=== PATIENT | female | born 1975 | race Two or more races ===

== ENCOUNTER 2017-05-18 16:23 | Emergency (ER) | payer OTHER ==
[~2017-05-18] VITALS: Ht 165.1 cm; Wt 71.3 kg
[2017-05-18 18:09] LABS: HEMATOCRIT 39.2 % (36.0-46.0); HEMOGLOBIN 13.3 G/DL (11.9-15.5); MCH 29.5 PG (29.0-34.0); MCHC 33.9 G/DL (30.0-36.0); MCV 86.9 FL (83-99); PLATELET COUNT 194 K/uL (156-360); RBC DIS.WIDTH-CV 12.2 % (11.8-14.6); RBC DIS.WIDTH-SD 39.4 % (39-53); RED BLOOD COUNT 4.51 M/uL (3.80-5.20); WHITE BLOOD COUNT 7.2 K/uL (4.1-10.2)
[2017-05-18 18:18] LABS: CHLORIDE 104 mEq/L (99-109); POTASSIUM 3.4 mEq/L (3.7-5.4); SODIUM 141 mEq/L (136-147)
[2017-05-18 18:20] LABS: GLUCOSE 105 mg/dL (70-99)
[2017-05-18 18:24] LABS: CREATININE 0.7 mg/dL (0.6-1.3); GFR ESTIMATE (CALCULATED) > 59 mL/min/
[2017-05-18 18:25] LABS: UREA NITROGEN (BUN) 6 mg/dL (9-23)
[2017-05-18 18:32] LABS: TROP-I INTERPRETATION NEGATIVE; TROPONIN-I < 0.01 ng/mL (0.0-0.30)
[2017-05-18 21:49] LABS: TROP-I INTERPRETATION NEGATIVE; TROPONIN-I < 0.01 ng/mL (0.0-0.30)
[2017-05-18 22:28] LABS: QUANTITATIVE HCG < 4.0 MIU/ML
[2017-05-18 23:14] VITALS: BP 156/98
== END 2017-05-18 23:18 | disposition home or self-care (01) ==
LOC: EME 16:23
PROVIDERS: Physician Assistant Medical
DX: M54.12 Radiculopathy, cervical region (principal); R07.9 Chest pain, unspecified; R51 Headache; I10 Essential (primary) hypertension; M25.512 Pain in left shoulder; R10.30 Lower abdominal pain, unspecified; G89.29 Other chronic pain
CPT/HCPCS: 70450; 71046; 73030; 80048; 84484; 84702; 85027; 93005; 99281; 99285; J0780; J1200; J1885; J7030